=== PATIENT | female | born 1955 | race Caucasian/White ===

== ENCOUNTER 2024-05-16 10:17 | Outpatient (REF) | payer MEDICARE, SELFPAY ==
--- OUTSIDE RECORDS SUMMARY | 2024-05-16 12:59 | XMS_ITS | Clinical Summary ---
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
[2024-05-16 18:22] LABS: Albumin Level 4.3 g/dL (3.5-5.0); Calcium 9.7 mg/dL (8.4-10.2); Estimated Glomerular Filt Rate > 60
[2024-05-16 18:31] LABS: Vitamin D 25-OH Total 57.6 ng/mL (>30)
== END 2024-05-16 10:18 | disposition home or self-care (01) ==
LOC: HO.HKASLDS 10:17
PROVIDERS: Visit Provider Internal Medicine Rheumatology
DX: M81.0 Age-related osteoporosis without current pathological fracture (principal)
CPT/HCPCS: 36415; 82040; 82306; 82310; 82565; 99202

== ENCOUNTER 2024-05-16 10:17 | Outpatient (AMB) | payer MEDICARE, SELFPAY ==
--- NOTE | 2024-05-16 10:19 | MHC.OFFVIS ---
Vital Signs 05/16/24 10:43 Height 5 ft 2 in Weight 143 lb 0.6 oz BMI 26.2 BP 130/80 Blood Pressure Location Lt brachial Position Sitting Pulse 74 Pulse Source Pulse Oximeter Pulse Oximetry (%) 98 Oxygen Delivery Method Room Air Intake Visit Reasons: OA Intake Note: Pt present today for OA. 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 She has osteoporosis on past bone densities. She tried fosamax for 2 months and had increase joint pain. She felt crippled. No hx fracture or thyroid disease. She takes vitamin D 25mcg daily. She eats yogurt serving every other day. Lost 30 lbs intentionally with diet change. She uses prednisone for bronchitis with last course 3 years ago. No hx anticoagulation use. Sister has osteopenia. Family hx maternal and paternal rheumatoid arthritis. Hx of HTN and preDM diet controlled. History of bilateral knee replacements 2017 and 2018. Hx breast reduction 8-9 years ago and tummy tuck. Bilateral cataract surgery 2023 Non smoker. Rarely drinks alcohol. Drinks 3 cups of coffee daily She has brought bone densities from 10/26/2013, 10/20/2018, 01/24/2021, 02/08/2023. Last bone density from 02/08/2023 reveals lowest T-score AP spine-2.6, femoral neck-2.3, total hip-1.9. Bone density from 10/26/2013 reveals lowest T-score AP spine-3.4, right femoral neck-1.9 and right total hip -1.6. [facility] Medical History (Updated 05/16/24 @ 11:59 by Mino Wick MD) Cataract Vitamin D deficiency Prediabetes Osteoarthritis Osteoporosis HTN (hypertension) Hx of thyroid nodule Hx gestational diabetes Hiatal hernia Elevated parathyroid hormone Anxiety Surgical History (Updated 05/16/24 @ 10:47 by Sonia Cisneros CMA) Status post right unicompartmental knee replacement History of bilateral breast reduction surgery History of left knee replacement History of abdominoplasty Family History Maternal Grandmother Diabetes mellitus type 2 in nonobese Mother Ovarian cancer Father Congestive heart failure Sister Bipolar 1 disorder Migraine Osteoporosis Brother Myocardial infarction Schizophrenic disorder Social History Alcohol intake: current Comment: 1-2 times per week (beer) Patient Tobacco Use Status: Never used Tobacco Physical Exam Vital Signs: Last Vital Signs Pulse 74 05/16/24 10:43 BP 130/80 05/16/24 10:43 Pulse Ox 98 05/16/24 10:43 Oxygen Delivery Method Room Air 05/16/24 10:43 BMI result Body Mass Index 26.2 Const Other: General: Comfortable CVS: RRR Respiratory: clear to auscultation bilaterally. Good respiratory effort Skin: No lesions seen MSK: Nontender joints. No synovitis. Good range of motion of upper extremities and lower extremities. Cervical rotation and extension is normal. She has reduced cervical flexion. Good lumbar flexion. Assessment & Plan Assessment & Plan (1) Osteoporosis: Comment: No history of fragility fracture. We reviewed diagnosis and management of osteoporosis. She did not tolerate Fosamax when used in the past for 2 months due to increased bone and joint pain. Can consider Reclast. We discussed risks, benefits and monitoring with bone density every 2 years. Reclast can also contribute to increased joint pain and myalgias as known as zoledronic acid induced acute phase response, which is treated with pretreatment with acetaminophen (1g) and post treatment with acetaminophen/NSAIDs/systemic steroids and hydration, which I discussed with patient. Code(s): M81.0 - Age-related osteoporosis without current pathological fracture Category: Medical Qualifiers: Osteoporosis type: age-related Presence of current pathological fracture: without current pathological fracture Qualified Code(s): M81.0 - Age-related osteoporosis without current pathological fracture Plan: Patient would like to wait for her bone density 02/15/2025 before proceeding with treatment We discussed importance of dietary calcium and vitamin-D rich foods. She is currently taking vitamin-D supplement 25 mcg daily I discussed the importance of daily exercise routine including weight-bearing exercises. She will try to aim for 30 minutes of exercise a day Information on Reclast given to patient I have ordered baseline labs with creatinine, calcium, albumin and vitamin-D Return to clinic mid February to review bone density Orders: Orders Vitamin D 25-OH Total Today M81.0 - Age-related osteoporosis without current pathological fracture Albumin Level Today M81.0 - Age-related osteoporosis without current pathological fracture Creatinine Today M81.0 - Age-related osteoporosis without current pathological fracture Calcium Today M81.0 - Age-related osteoporosis without current pathological fracture Coding Level of Care Code New Pt Level 4 (05530) Diagnoses Age-related osteoporosis without current pathological fracture M81.0 Osteoporosis type: age-related Presence of current pathological fracture: without current pathological fracture
[2024-05-16 10:43] VITALS: BP 130/80; PULSE 74; O2SAT 98; BMI 26.2
--- OUTSIDE RECORDS SUMMARY | 2024-05-16 11:16 | XMS_ITS | Clinical Summary ---
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 Television Installer Name Role Phone Unavailable Primary Care Provider Unavailabl e Social History Tobacco Use Types Packs/Day Years Used Date Smoking Tobacco: Never Assessed Comments Unknown Sex and Gender Information Value Date Recorded Sex Assigned at Not on file Legal Sex Female 6:44 AM EST Gender Identity Not on file Sexual Orientation Not on file Plan of Treatment Health Maintenance Due Date Last Done Comments Breast Cancer Screening 1955 DTaP,Tdap,and Td Vaccines (1 - Tdap) 08/24/1974 Pneumococcal Vaccine: 50+ Ye ars (1 of 1 - PCV) 08/24/2005 Zoster Vaccines (1 of 2) 08/24/2005 Colorectal Cancer Screening: Colonoscopy 03/01/2022 Depression Screening 03/01/2022 Falls Risk Assessment 03/01/2022 Hepatitis C Screening 03/01/2022 Osteoporosis Screening (Bone Density Screening) 03/01/2022 Social Influencers of Health Screening 03/01/2022 COVID-19 Vaccine ( - 2023-2 5 season) 2023 Influenza Vaccine (#1) 2023 RSV Immunization Patients 60 + Years Old (1 - 1-dose 75+ series) 08/24/2030 HIB Vaccines Aged Out No longer eligi ble based on patient's age to complete this topic HPV Vaccines Aged Out No longer eligi ble based on patient's age to complete this topic Hepatitis A Vaccines Aged Out No long er eligible based on patient's age to complete this topic Hepatitis B Vaccines Aged Out No long er eligible based on patient's age to complete this topic IPV Vaccines Aged Out No longer eligi ble based on patient's age to complete this topic MMR Vaccines Aged Out No longer eligi ble based on patient's age to complete this topic Meningococcal ACWY Vaccine Aged Out N o longer eligible based on patient's age to complete this topic Meningococcal B Vacine Aged Out No lo nger eligible based on patient's age to complete this topic RSV Immunization Patients Un angelica 20 months Aged Out No longer eligible b ased on patient's age to complete this topic Varicella Vaccines Aged Out No longer eligible based on patient's age to complete this topic Advance Directives Documents on File Type Date 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
--- OUTSIDE RECORDS SUMMARY | 2024-05-16 11:17 | XMS_ITS | Data Portability ---
Author Organization [facility] Jaden Car Sdpatrice [facility], [facility] Address [address] [place] [address] Assessment No assessment recorded. Plan of Treatment Reminders Order Date Submit Date Provider Last Modified By Organization Details Last Modified Time Details Appointments None record ed. Lab None record ed. Referral None record ed. Procedures None record ed. Surgeries None record ed. Imaging XR, ankle, 3 or more view 024 07/20/19 [facility], [address], [address], [place], [address], 4 13:41:38 Medication Orders None record ed. Patient TargetsNo targets recorded. Patient InstructionsNo instructions recorded. Reason for Referral None Reported. Results Created Date Observation Date Name Description Value Unit Range Abnormal Flag Note LastModifiedBy Organization Detail LastModifiedTime 10/27/19 24 10/28/2023 CBC WITH DIFFE RENTI AL/PL ATELE T WBC 9.3 x10e3 /uL 3.4-10 .8 normal Not Available [facility] ([facility]) [address] [place], [address], 10/28/2023 08:09:03 10/27/19 24 10/28/2023 CBC WITH DIFFE RENTI AL/PL ATELE T RBC 4.94 x10e6 /uL 3.77-5 .28 normal Not Available [facility] ([facility]) [address] [place], [address], 10/28/2023 08:09:03 10/27/19 24 10/28/2023 CBC WITH DIFFE RENTI AL/PL ATELE T hemoglobin 14.2 g/dL 11.1-1 5.9 normal Not Available [facility] ([facility]) [address] [facility], [place], [address], 10/28/2023 08:09:03 10/27/19 24 10/28/2023 CBC WITH DIFFE RENTI AL/PL ATELE T hematocrit 44.1 % 34.0-4 6.6 normal Not Available [facility] ([facility]) [address] [facility], [place], [address], 10/28/2023 08:09:03 10/27/1910/28/2023 CBC WITH DIFFE RENTI AL/PL ATELE T MCV 89 fL 79-97 normal Not Available [facility] ([facility]) [address] [facility], [place], [address], 10/28/2023 08:09:03 10/27/19 24 10/28/2023 CBC WITH DIFFE RENTI AL/PL ATELE T MCH 28.7 pg 26.6-3 3.0 normal Not Available [facility] ([facility]) [address] [place], [address], 10/28/2023 08:09:03 10/27/1910/28/2023 CBC WITH DIFFE RENTI AL/PL ATELE T MCHC 32.2 g/dL 31.5-3 5.7 normal Not Available [facility] ([facility]) [address] [place], [address], 10/28/2023 08:09:03 10/27/1910/28/2023 CBC WITH DIFFE RENTI AL/PL ATELE T RDW 13.0 % 11.7-1 5.4 Not Available [facility] ([facility]) [address] [place], [address], 10/28/2023 08:09:03 10/27/1910/28/2023 CBC WITH DIFFE RENTI AL/PL ATELE T platelets 299 x10e3 /uL 150-45 0 normal Not Available [facility] ([facility]) [address] [facility], [place], [address], 10/28/2023 08:09:03 10/27/19 24 10/28/2023 CBC WITH DIFFE RENTI AL/PL ATELE T neutrophils 63 % not estab. normal Not Available [facility] ([facility]) [address] [facility], [place], [address], 10/28/2023 08:09:03 10/27/19 24 10/28/2023 CBC WITH DIFFE RENTI AL/PL ATELE T lymphs 26 % not estab. normal Not Available [facility] ([facility]) [address] [facility], [place], [address], 10/28/2023 08:09:03 10/27/19 24 10/28/2023 CBC WITH DIFFE RENTI AL/PL ATELE T monocytes 9 % not estab. normal Not Available [facility] ([facility]) [address] [facility], [place], [address], 10/28/2023 08:09:03 10/27/19 24 10/28/2023 CBC WITH DIFFE RENTI AL/PL ATELE T eos 1 % not estab. normal Not Available [facility] ([facility]) [address] [facility], [place], [address], 10/28/2023 08:09:03 10/27/19 24 10/28/2023 CBC WITH DIFFE RENTI AL/PL ATELE T basos 1 % not estab. normal Not Available [facility] ([facility]) [address] [facility], [place], [address], 10/28/2023 08:09:03 10/27/19 24 10/28/2023 CBC WITH DIFFE RENTI AL/PL ATELE T immature cells IS ANALYST Not Available [facility] ([facility]) [address] [facility], [place], [address], 10/28/2023 08:09:03 10/27/19 24 10/28/2023 CBC WITH DIFFE RENTI AL/PL ATELE T neutrophils (absolute) 5.8 x10e3 /uL 1.4-7. 0 normal Not Available [facility] ([facility]) [address] [facility], [place], [address], 10/28/2023 08:09:03 10/27/19 24 10/28/2023 CBC WITH DIFFE RENTI AL/PL ATELE T lymphs (absolute) 2.4 x10e3 /uL 0.7-3. 1 normal Not Available [facility] ([facility]) [address] [facility], [place], [address], 10/28/2023 08:09:03 10/27/19 24 10/28/2023 CBC WITH DIFFE RENTI AL/PL ATELE T monocytes(ab solute) 0.8 x10e3 /uL 0.1-0. 9 normal Not Available [facility] ([facility]) [address] [facility], [place], [address], 10/28/2023 08:09:03 10/27/19 24 10/28/2023 CBC WITH DIFFE RENTI AL/PL ATELE T eos (absolute) 0.1 x10e3 /uL 0.0-0. 4 normal Not Available [facility] ([facility]) [address] [facility], [place], [address], 10/28/2023 08:09:03 10/27/19 24 10/28/2023 CBC WITH DIFFE RENTI AL/PL ATELE T baso (absolute) 0.1 x10e3 /uL 0.0-0. 2 normal Not Available [facility] ([facility]) [address] [facility], [place], [address], 10/28/2023 08:09:03 10/27/19 24 10/28/2023 CBC WITH DIFFE RENTI AL/PL ATELE T immature granulocytes 0 % not estab. Not Available [facility] ([facility]) [address] [facility], [place], [address], 10/28/2023 08:09:03 10/27/19 24 10/28/2023 CBC WITH DIFFE RENTI AL/PL ATELE T immature grans (abs) 0.0 x10e3 /uL 0.0-0. 1 Not Available [facility] ([facility]) [address] [facility], [place], [address], 10/28/2023 08:09:03 10/27/19 24 10/28/2023 CBC WITH DIFFE RENTI AL/PL ATELE T NRBC IS ANALYST Not Available [facility] ([facility]) [address] [facility], [place], [address], 10/28/2023 08:09:03 10/27/19 24 10/28/2023 CBC WITH DIFFE RENTI AL/PL ATELE T hematology comments: IS ANALYST Not Available [facility] ([facility]) [address] [facility], [place], [address], 10/28/2023 08:09:03 10/27/19 24 10/28/2023 SEDIM ENTAT ION RATE- WESTE RGREN sedimentatio n rate-westerg олег 28 mm/HR 0-40 normal Not Available [facility] ([facility]) [address] [facility], [place], [address], 10/28/2023 08:09:04 10/27/19 24 10/28/2023 C-CYNDI CTIVE PROTE IN, QUANT C-reactive protein, quant 1 mg/L 0-10 normal Not Available [facility] ([facility]) [address] [facility], [place], [address], 10/28/2023 08:09:05 07/20/19 24 07/20/2023 XR, ankle , 3 or more view [email or web address] ?Encry pted=s hAaTro YD8dLq bEUv6g %2BXZw aYqtaq 0bqfl% 2Fg9IQ a4ajBk vP9nXo QUaueC m3YtLR FvZlgJ JJ8mAn HZtai3 6e7475 AC0Ksb 3%2BHU qbeUC8 mr84%3 D INTERFACE [facility] other [facility] [address], [place], [address], 07/20/2023 08:50:16 07/20/19 24 07/20/2023 XR, ankle , 3 or more view [email or web address] ?Encry pted=s hAaTro YD8dLq bEUv6g %2BXZw aYqtaq 0bqfl% 2Fg9IQ a4ajBk vP9nXo QUaueC m3YtLR FvZlgJ JJ8mAn HZtai3 0h4728 AC0Ksb 3%2BHU qbeUC8 mr84%3 D INTERFACE [employer] [facility] other things you [facility] [address], [place], [address], 07/20/2023 08:50:18 Result Notes None recorded. Problems Name Problem SNOMED Code Status Onset Date Resolution Date Notes Provider Name and Address Organization Details Recorded Time Bilateral osteoarthr itis of knees 6190881020714 07 Active 2020 Status : 'A'; Not Available [facility] 11:58:06 Problem Notes None recorded. Procedures Surgical History None recorded. Imaging Results Imaging Date Name Status LastModified by [facility] Details LastModified Time 07/20/2023 XR, ankle, 3 or more view completed INTERFACE [employer] other [facility] you [facility] [address], [place], [address], 07/20/2023 08:50:16 07/20/2023 XR, ankle, 3 or more view completed INTERFACE [facility] [address], [place], [address], 07/20/2023 08:50:18 Procedure Notes None recorded. Medical Equipment None Reported. Allergies Allergen ID Allergen Name Allergen Category Reaction Reaction Severity Criticality Documentation Date Start Date Code Code System Note Provider Name and Address Organization Details Recorded Time 371455 oxycodone hydrochlo ride medicatio n Not available Not available Not available 05/31/20232020 81505 RxNorm Aller gyRea ction : 'itch y'; Not Available [facility] 16:13:58 638824 acetamino phen / hydrocodo ne medicatio n Not available Not available Not available 05/31/20232020 93607 2 RxNorm Not Available [facility] 16:13:58 Medications Name Sig Start Date Stop Date Status Note LastModified by Organization Details LastModified Time amoxicillin 500 mg capsule 4 pills 1 hour prior to DENTAL APPT 2023 active Not Available Not Available Not Avai lable pseudoephedr ine-guaifene sin ER 80-700 mg tablet,exten ded release 1-2 TAB PO Q 4-[address] H[address] PA[address] NOT DRIVE WHILE ON THIS MEDICATION 2010 active Statu s: 'Curr ent'; Not Available Not Available Not Available Vitals Date Recorded Body height Body mass index (BMI) Body weight Provider Name and Address Organization Details Last Updated DateTime 07/20/2023 160.02 cm 28.5 kg/m2 78987.37 g VANESSA LYONS [place] - [facility] 07/20/2023 08:44:24 Social History None recorded. Functional Status None recorded. Mental Status None recorded. Family History Nothing Reported. Medical History No medical history recorded. Gynecological HistoryNo gynecological history recorded. Obstetrics History GPAL:G 0 P 0 0 0 0 Past Encounters Encounter ID Performer Location Encounter Start Date Encounter Closed Date Diagnosis/Indication Diagnosis SNOMED-CT Code Diagnosis ICD10 Code Diagnosis Note [id number] CLARISSA Jordan [address] [place] [address] 07/20/2023 08:30:20 08/10/2023 13:41:38 Pain of right ankle joint 0702890208 6382673 M25.571 Sprain of right ankle 11 62157611 7400645 S93.401A Health Concerns Section Related Observation LastModified by Organization Detai ls LastModified Time None Recorded Concern Status LastModified by Organization Details LastModified Time None Recorded Advance Directives Directive None Recorded Payers Encounter Date Sequence Insurance Name Policy Number Policy Snell Covered Member ID Snell Member ID Guarantor Name 07/20/2023 1 [place] [employer] Megan Jacobs [id number] Megan Jacobs 07/20/2023 2 [place] [id number] Megan Jacobs [id number] Megan Jacobs Notes Date Note Type Note Provider Name and Address Organization Details Recorded Time 07/20/2023 text/html I am seeing this patient under the supervision of Dr. Luevano, who was available but who did not see the patient. HPI: Patient is a 67-year-old female presenting today in regards to right ankle pain. She tripped and fell about 3 weeks ago. Few days later she started to experience pain about the anterior and anteromedial aspects of the ankle. She does not have much pain day-to-day however has pain at nighttime in bed. She denies any previous history of trauma to the ankle. Denies any interval trauma. Denies any fevers, chills, or paresthesias. PFMSH, Meds and ROS reviewed, updated and signed by me, and is located in the patient's chart. PHYSICAL EXAMINATION: The patient is well appearing and in no apparent distress. Alert and oriented x 3. Examination of her right ankle reveals neutral alignment. On seated examination, there is slight edema about the anteromedial ankle. She is mildly tender to palpation over the anteromedial ankle joint. Nontender to palpation elsewhere about the foot or ankle. Good ankle range of motion. No ankle instability. No peroneal subluxation. Calf soft, nontender. Sensation intact light touch in the right lower extremity. RADIOLOGY: X-rays were ordered, obtained, and reviewed today in our office. 3 views of the right ankle reveal no evidence of acute fractures or bony lesions. No arthritic changes noted. IMPRESSION: Right ankle pain, sprain PLAN: Discussed the findings and situation with the patient today. Recommended conservative treatment for this. Reassured her that I do not see thing worrisome on her x-rays today. She was given a prescription for an ankle brace today. Continue with activities as tolerated. Follow-up as needed. Call with questions or concerns. The patient is ambulatory, but has weakness and/or instability of their extremity which requires stabilization from this semi-rigid/rigid orthosis to improve their function. Verbal and written instructions for the use and application of this item were given. Patient was instructed that should the brace result in increased pain, decreased sensation, increased swelling or an overall worsening of their medical condition, to please contact our office immediately. Argentina Cuba PA-C [address] [facility] [address], [place], [address], [facility] - [facility] 07/20/2023 10:25:34 OBGyn Episode No OBEpisode recorded.
== END 2024-05-16 11:45 | disposition home or self-care (01) ==
PROVIDERS: PCP Nurse Practitioner Family; Visit Provider Internal Medicine Rheumatology
DX: M81.0 Age-related osteoporosis without current pathological fracture (principal)
CPT/HCPCS: 99204

== ENCOUNTER 2025-03-13 10:41 | Outpatient (AMB) | payer MEDICARE, SELFPAY ==
--- NOTE | 2025-03-13 10:43 | MHC.OFFVIS ---
Vital Signs 03/13/25 10:44 Height 5 ft 2 in Weight 136 lb 3.931 oz BMI 24.9 BP 120/78 Blood Pressure Location Rt brachial Position Sitting Pulse 74 Pulse Source Pulse Oximeter Pulse Oximetry (%) 98 Oxygen Delivery Method Room Air Intake Visit Reasons: Mid february 2025 Intake Note: Pt present today for OA. Accompanied by: Self / Same As Patient Allergies oxycodone Allergy (Mild, Uncoded 05/09/24 11:58) itchy vicodin Allergy (Uncoded 05/09/24 11:58) itchy HPI HPI Mid february 2025: Details: DXA 01/2025 T score AP spine -2.8, total hip -2.2, femoral neck -3.0. She was found to have a thyroid nodule and we will be evaluated for possible biopsy. She says that her TSH level was abnormal. Her calcium level was also elevated. She stopped calcium supplement since labs were done in the summer. She continues to exercise and wears an osteoporosis belt that she recently purchased. [facility] Medical History Cataract Vitamin D deficiency Prediabetes Osteoarthritis Osteoporosis HTN (hypertension) Hx of thyroid nodule Hx gestational diabetes Hiatal hernia Elevated parathyroid hormone Anxiety Surgical History Status post right unicompartmental knee replacement History of bilateral breast reduction surgery History of left knee replacement History of abdominoplasty Family History Maternal Grandmother Diabetes mellitus type 2 in nonobese Mother Ovarian cancer Father Congestive heart failure Sister Bipolar 1 disorder Migraine Osteoporosis Brother Myocardial infarction Schizophrenic disorder Social History Alcohol intake: current Comment: 1-2 times per week (beer) Patient Tobacco Use Status: Never used Tobacco Physical Exam Vital Signs: Last Vital Signs Pulse 74 03/13/25 10:44 BP 120/78 03/13/25 10:44 Pulse Ox 98 03/13/25 10:44 Oxygen Delivery Method Room Air 03/13/25 10:44 BMI result Body Mass Index 24.9 Const Other: General: Comfortable Skin: No lesions seen Assessment & Plan Assessment & Plan (1) Osteoporosis: Comment: Reviewed patient's bone density report from a photo she took on her phone from patient portal access. Lowest T-score is -3 left femoral neck. It has worsened since bone density from 2022. No history of fragility fracture. We reviewed diagnosis and management of osteoporosis. She did not tolerate Fosamax when used in the past for 2 months due to increased bone and joint pain. Reclast is indicated. We discussed risks, benefits of Reclast and monitoring with bone density every 2 years. Reclast can also contribute to increased joint pain and myalgias as known as zoledronic acid induced acute phase response, which is treated with pretreatment with acetaminophen (1g), 250 cc IV fluids and post treatment with acetaminophen/NSAIDs/systemic steroids and hydration, which I discussed with patient. Since she has not had a fragility fracture or bone density in severe osteoporosis range, I do not recommend anabolic agent or Prolia at this time. She needs more time to think about pursuing Reclast. Answered patient's questions to her satisfaction. Code(s): M81.0 - Age-related osteoporosis without current pathological fracture Category: Medical Qualifiers: Osteoporosis type: age-related Presence of current pathological fracture: without current pathological fracture Qualified Code(s): M81.0 - Age-related osteoporosis without current pathological fracture Plan: She will follow up with clinical systems analyst for evaluation management of new thyroid nodule Continue vitamin-D supplement 25 mcg daily She held calcium supplement because of hypercalcemia noted on labs in the summer. She will be following up with clinical systems analyst. I will obtain labs next visit for osteoporosis management Continue daily exercise routine including weight-bearing exercises Information on Reclast given to patient last visit During my clinic in 3 months Coding Level of Care Code Est Pt Level 4 (27687) Add On Problem Visit Only Diagnoses Age-related osteoporosis without current pathological fracture M81.0 Osteoporosis type: age-related Presence of current pathological fracture: without current pathological fracture Time Spent (min) 30
[2025-03-13 10:44] VITALS: BP 120/78; PULSE 74; O2SAT 98; BMI 24.9
--- OUTSIDE RECORDS SUMMARY | 2025-03-13 13:37 | XMS_ITS | Clinical Summary ---
Author Organization [facility] ity Address [address] [place] [address] Care Team Providers Care Psychologist Clinical Name Role Phone Unavailable Primary Care Provider [...] Last Done Comments Breast Cancer Screening 1955 Colorectal Cancer Screening: Colonoscopy 1955 DTaP,Tdap,and Td Vaccines (1 - Tdap) 08/24/1974 Pneumococcal Vaccine: 50+ Ye ars (1 of 1 - PCV) 08/24/2005 Zoster Vaccines (1 of 2) 08/24/2005 Falls Risk Assessment 03/01/2022 Hepatitis C Screening 03/01/2022 Osteoporosis Screening (Bone Density Screening) 03/01/2022 Social Influencers of Health Screening 03/01/2022 Depression Screening 03/29/2024 COVID-19 Vaccine (1 - 2024-2 6 season) 2024 Influenza Vaccine (#1) 2024 RSV Immunization Adult Patie nts (1 - 1-dose 75+ series) 08/24/2030 HIB [...] age to complete this topic Meningococcal B Vaccine Aged Out No l onger eligible based on patient's age to complete this topic RSV Immunization Patients Un angelica 20 months Aged Out No longer eligible b ased on patient's age to complete this topic Varicella Vaccines Aged Out No longer eligible based on patient's age to complete this topic Advance Directives Documents on File Type Date Recorded Patient Coat Joiner Expl anation Health Care Decision (hx) 09/16/2017 AD BERNAL DIRECTIVE Health Care Decision (hx) 09/16/2017 AD BERNAL DIRECTIVE
== END 2025-03-13 11:45 | disposition home or self-care (01) ==
LOC: HO.RHES 10:42
PROVIDERS: PCP Nurse Practitioner Family; Visit Provider Internal Medicine Rheumatology
DX: M81.0 Age-related osteoporosis without current pathological fracture (principal)
CPT/HCPCS: 99214; G2211

== ENCOUNTER → 2025-03-13 10:41 | Outpatient (BNVA) | payer MEDICARE, SELFPAY | PROVIDERS: Visit Provider Internal Medicine Rheumatology | DX: M81.0 Age-related osteoporosis without current pathological fracture (principal); Z79.899 Other long term (current) drug therapy | CPT/HCPCS: 99212 ==